=== PATIENT | male | born 1960 | race Caucasian/White ===

== ENCOUNTER → 2017-11-24 | Day surgery (SDC) | payer BC ==
[~2017-11-24] MED LIST: Lactated Ringers 1,000 ML IV SCH; Propofol 200 MG/20 ML SDV IV ONE
--- NOTE | 2017-11-24 13:00 | OR ---
DATE OF OPERATION: 11/24/2017 PREOPERATIVE DIAGNOSIS: SCREENING COLONOSCOPY. POSTOPERATIVE DIAGNOSIS: SCREENING COLONOSCOPY. SURGEON: Sky Conway MD PROCEDURE: FULL-LENGTH COLONOSCOPY. 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 COMPLICATIONS: None. SPECIMEN: None. FINDINGS: Normal full length colonoscopy. RECOMMENDATIONS: Followup colonoscopy every 10 years. INDICATIONS: The patient was in for routine physical. It was recommended, he have a screening colonoscopy due to his age. DESCRIPTION OF PROCEDURE: The patient was prepped and draped, placed in the left lateral decubitus position. A lubricated Olympus colonoscope was inserted and easily advanced to the cecum. Direct visualization of the ileocecal valve and appendiceal orifice was accomplished. The bowel prep was excellent. We were able also to intubate into the terminal ileum which was unremarkable. Throughout the length of the colon, I could find no signs of any polyps, masses, ulcerations, or bleeding sites. No vascular abnormalities or signs of colitis. There were no diverticula. The rectal vault was unremarkable. Retroflexion of the scope in the rectum showed no anal lesions. Air was suctioned and scope removed without complication. RO/NEHA /[id number]
== END ==
LOC: CC.SDS 09:28
PROVIDERS: ATTEND Family Medicine
DX: Z12.11 Encounter for screening for malignant neoplasm of colon (principal); N40.0 Benign prostatic hyperplasia without lower urinary tract symptoms; Z79.899 Other long term (current) drug therapy
CPT/HCPCS: 45378; J2704; J7120

== ENCOUNTER 2025-11-11 12:58 | Day surgery (SDC) | payer MEDICARE, BC ==
[2025-11-11] MEDS: Lactated Ringers 1,000 ML IV SCH (13:25)
[2025-11-11] MEDS ORDERED: Ketamine 200 MG/20 ML MDV ONE (14:10)
[2025-11-11] MEDS ORDERED: fentaNYL 50 MCG/ML SDV ONE ×3 (14:10)
[2025-11-11] MEDS ORDERED: Ketorolac 30 MG/ML SDV ONE (14:10)
[2025-11-11] MEDS ORDERED: Dexamethasone 4 MG/ML SDV ONE (14:10)
[2025-11-11] MEDS ORDERED: Midazolam 1 MG/ML 2 ML SDV ONE (14:10)
[2025-11-11] MEDS ORDERED: Propofol 200 MG/20 ML SDV ONE ×2 (14:10)
[2025-11-11] MEDS ORDERED: Ondansetron 4 MG/2 ML SDV ONE (14:10)
== END 2025-11-11 18:35 | disposition home or self-care (01) ==
LOC: CC.SDS 12:58
PROVIDERS: ATTEND Surgery
DX: K40.90 Unilateral inguinal hernia, without obstruction or gangrene, not specified as recurrent (principal); I10 Essential (primary) hypertension; Z86.16 Personal history of COVID-19
CPT/HCPCS: 00790; 49505; 88304; A9270-GY; J0665; J0690; J1100; J1885; J2003; J2250; J2405; J2704; J2710; J3010; J3490; J7120